=== PATIENT | male | born 1980 | race Two or more races ===

== ENCOUNTER 2021-04-02 22:43 | Emergency (ER) | payer MEDICAID ==
[~2021-04-02] VITALS: Ht 182.9 cm; Wt 99.8 kg
[2021-04-02 22:48] VITALS: BP 137/81
--- NOTE | 2021-04-02 22:54 | NUR ---
AFTER BEING TRIAGED AND PLACED IN BED. PT LEFT BEFORE BEING SEEN BY MD.
== END 2021-04-02 23:03 | disposition left against medical advice (07) ==
LOC: ER 23:01
DX: R07.89 Other chest pain (principal); Z53.21 Procedure and treatment not carried out due to patient leaving prior to being seen by health care provider

== ENCOUNTER 2023-12-08 17:01 | Emergency (ER) | payer MEDICAID | END 2023-12-08 18:49 | disposition left against medical advice (07) | LOC: ER 17:04 | DX: M79.643 Pain in unspecified hand (principal); Z53.21 Procedure and treatment not carried out due to patient leaving prior to being seen by health care provider ==

== ENCOUNTER 2024-10-03 20:52 | Emergency (ER) | payer MEDICAID ==
[~2024-10-03] VITALS: Ht 182.9 cm; Wt 90.7 kg
[2024-10-03 21:21] VITALS: BP 144/71; TEMP 98; O2SAT 98
== END 2024-10-03 21:59 | disposition home or self-care (01) ==
LOC: ER 20:58
DX: B00.9 Herpesviral infection, unspecified (principal); K13.0 Diseases of lips; F19.10 Other psychoactive substance abuse, uncomplicated; Z88.0 Allergy status to penicillin; Z87.39 Personal history of other diseases of the musculoskeletal system and connective tissue; Z60.2 Problems related to living alone